=== PATIENT | male | born 1970 | race Hispanic/Latino ===

== ENCOUNTER 2017-11-18 09:40 | Inpatient (IN) | payer SELFPAY ==
[2017-11-18] MEDS ORDERED: ASPIRIN PO ONE (10:03)
[2017-11-18 10:28] LABS: Basophils % (Auto) 0.4 % (0.0-1.8); Eosinophils % (Auto) 0.1 % (0.0-4.3); Hematocrit 34.2 % (35.5-45.6); Hemoglobin 11.5 gm/dl (11.8-15.2); Lymphocytes # (Auto) 0.9 K/mm3 (1.2-5.4); Lymphocytes % (Auto) 20.1 % (13.4-35.0); Mean Corpuscular HGB Conc 34 % (32-34); Mean Corpuscular Hemoglobin 31 pg (28-32); Mean Corpuscular Volume 91 fl (84-94); Monocytes # (Auto) 0.2 K/mm3 (0.0-0.8); Monocytes % (Auto) 5.1 % (0.0-7.3); Platelet Count 236 K/mm3 (140-440); Red Blood Count 3.76 M/mm3 (3.65-5.03); Red Cell Distribution Width 15.9 % (13.2-15.2)
[2017-11-18 10:46] LABS: INR 0.91 (0.87-1.13)
[2017-11-18 10:47] LABS: Partial Thromboplastin Time 26.2 Sec. (24.2-36.6)
[2017-11-18 10:49] LABS: BUN/Creatinine Ratio 10; Blood Urea Nitrogen 10 mg/dL (9-20); Calcium 8.5 mg/dL (8.4-10.2); Hemolysis Index 24
[2017-11-18] MEDS ORDERED: ZOFRAN IV ONE (11:06)
[2017-11-18] MEDS ORDERED: MORPHINE IV ONE (11:06)
--- NOTE | 2017-11-18 11:45 | Emergency Department Report ---
ED Chest Pain HPI - General Chief Complaint: Chest Pain Stated Complaint: CHEST PAIN Time Seen by Provider: 11/18/17 10:40 Source: patient Mode of arrival: Ambulatory Limitations: No Limitations - History of Present Illness Initial Comments: Mr. Spring is a 47-year-old male with history of coronary artery disease status post 2 vessel CABG and PCI. He presents with severe chest pain. Pain is substernal radiating to the right neck. Radiating to the left shoulder. No associated shortness signs of breath. No nausea vomiting. 3 nitroglycerin tabs did not provide any relief. One year ago he underwent 2 vessel CABG at [facility] in [place]. Subsequently 6 months after the CABG, he underwent PCI with increased cardiac stents placed. He is unable to take aspirin or Plavix due to history of GI bleed related to peptic ulcer disease. Today he also had a fall. He has bilateral knee abrasions. He has relocated to [place]. He grew up in the area. His former PCP is located in [place]. He has re-established care with this provider recently. 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 Past surgery history: recent cholecystectomy 1 week ago at [facility] Gastric bypass CABG Aortic valve replacement PCI Medications: Atorvastatin Metoprolol Protonix Aspirin Alprazolam Ambien Severity scale (0 -10): 8 - Related Data Allergies Allergy/AdvReac Type Severity Reaction Status Date / Time lisinopril Allergy Shortness Verified 11/18/17 09:58 of Breath NSAIDS (Non-Steroidal Allergy Nausea Verified 11/18/17 09:58 Anti-Inflamma Heart Score - HEART Score History: Highly suspicious EKG: Non-specific Age: 45-65 Risk factors: > 3 risk factors or hx of atherosclerotic disease Troponin: < normal limit HEART Score: 6 ED Review of Systems ROS: Stated complaint: CHEST PAIN Other details as noted in HPI Comment: All other systems reviewed and negative Constitutional: denies: fever, malaise Respiratory: denies: cough Cardiovascular: chest pain ED Past Medical Hx - Past Medical History Previous Medical History?: Yes Hx Heart Attack/AMI: Yes Hx Diabetes: Yes (no meds) Additional medical history: CAD, Anemia, Chest pain - Surgical History Past Surgical History?: Yes Hx Coronary Stent: Yes Hx Open Heart Surgery: Yes Hx Cholecystectomy: Yes - Social History Smoking Status: Never Smoker Substance Use Type: Alcohol, Prescribed ED Physical Exam - General Limitations: No Limitations General appearance: alert, in no apparent distress - Head Head exam: Present: atraumatic, normocephalic - Eye Eye exam: Present: normal appearance - ENT ENT exam: Present: mucous membranes moist - Neck Neck exam: Present: normal inspection - Respiratory Respiratory exam: Present: normal lung sounds bilaterally. Absent: respiratory distress, wheezes, rales, rhonchi - Cardiovascular Cardiovascular Exam: Present: regular rate, normal rhythm, normal heart sounds. Absent: systolic murmur, diastolic murmur, rubs, gallop - GI/Abdominal GI/Abdominal exam: Present: soft, normal bowel sounds. Absent: distended, tenderness, guarding, rebound - Rectal Rectal exam: Present: deferred - Extremities Exam Extremities exam: Present: normal inspection - Back Exam Back exam: Present: normal inspection - Neurological Exam Neurological exam: Present: alert, oriented X3 - Psychiatric Psychiatric exam: Present: normal affect, normal mood - Skin Skin exam: Present: warm, dry, intact, normal color, abrasion (bilateral knee abrasions, chronic healing ulcer left lower leg ). Absent: rash ED Course Vital Signs 11/18/17 11/18/17 09:58 10:22 Temperature 97.8 F 97.9 F Pulse Rate 56 L 53 L Respiratory 18 13 Rate Blood Pressure 146/82 Blood Pressure 151/84 [Left] O2 Sat by Pulse 99 99 Oximetry ED Medical Decision Making - Lab Data Result diagrams: 11/18/17 10:10 11/18/17 10:11 Laboratory Results - last 24 hr 11/18/17 11/18/17 11/18/17 10:10 10:11 10:11 WBC 4.4 L RBC 3.76 Hgb 11.5 L Hct 34.2 L MCV 91 MCH 31 MCHC 34 RDW 15.9 H Plt Count 236 Lymph % (Auto) 20.1 [place] % (Auto) 5.1 Eos % (Auto) 0.1 Baso % (Auto) 0.4 Lymph # 0.9 L [place] # 0.2 Eos # 0.0 Baso # 0.0 Seg Neutrophils % 74.3 H Seg Neutrophils # 3.3 PT 12.7 INR 0.91 APTT 26.2 Sodium 141 Potassium 4.0 Chloride 104.6 Carbon Dioxide 25 Anion Gap 15 BUN 10 Creatinine 1.0 Estimated GFR > 60 BUN/Creatinine Ratio 10 Glucose 123 H Calcium 8.5 Troponin T < 0.010 - Radiology Data Radiology results: report reviewed, image reviewed - Medical Decision Making Mr. Spring is a 47 yo male with hx of CAD s/p CABG and PCI who presents with ACS. He also reported fall without syncope. No significant due to the fall. Admitted to hospitalist service. I have also consulted cardiology. Critical care attestation.: If time is entered above; I have spent that time in minutes in the direct care of this critically ill patient, excluding procedure time. ED Disposition Clinical Impression: ACS (acute coronary syndrome), Fall from ground level Disposition: DC-09 OP ADMIT IP TO THIS HOSP Is pt being admited?: Yes Does the pt Need Aspirin: No Condition: Stable Time of Disposition: 11:20
--- NOTE | 2017-11-18 12:06 | Consultation ---
History of Present Illness Consult date: 11/18/17 Consult reason: chest pain History of present illness: This is a 47yr old male who presents to the emergency department with chest pain and syncope thus this cardiac consultation. Patient reports he woke up with chest pain, got out of bed and passed out sustaining abrasions to his upper and lower extremities. He denies shortness of breath and palpations. 12 lead ECG is a sinus bradycardia, rate 50, with non-specific Twave abnormalities. Patient reports a history of coronary artery disease and underwent 2 vessel bypass grafting with bioprosthetic aortic valve replacement just over a year ago while living in [place]. He has recently relocated to [place] and has yet to establish cardiac care. Patient also reports a history of gastric bypass in 2008, Hypertension and recent cholecystectomy at an outside hospital. Medications and Allergies Allergies Allergy/AdvReac Type Severity Reaction Status Date / Time lisinopril Allergy Shortness Verified 11/18/17 09:58 of Breath NSAIDS (Non-Steroidal Allergy Nausea Verified 11/18/17 09:58 Anti-Inflamma Physical Examination Vital Signs Temp Pulse Resp BP Pulse Ox 97.8 F 56 L 18 146/82 99 11/18/17 09:58 11/18/17 09:58 11/18/17 09:58 11/18/17 09:58 11/18/17 09:58 General appearance: no acute distress HEENT: Positive: PERRL Cardiac: Positive: Reg Rate and Rhythm Lungs: Positive: Decreased Breath Sounds Neuro: Positive: Grossly Intact Results 11/18/17 10:10 11/18/17 10:11 Coagulation 11/18/17 Range/Units 10:11 PT 12.7 (12.2-14.9) Sec. INR 0.91 (0.87-1.13) APTT 26.2 (24.2-36.6) Sec. CBC 11/18/17 Range/Units 10:10 WBC 4.4 L (4.5-11.0) K/mm3 RBC 3.76 (3.65-5.03) M/mm3 Hgb 11.5 L (11.8-15.2) gm/dl Hct 34.2 L (35.5-45.6) % Plt Count 236 (140-440) K/mm3 Lymph # 0.9 L (1.2-5.4) K/mm3 [place] # 0.2 (0.0-0.8) K/mm3 Eos # 0.0 (0.0-0.4) K/mm3 Baso # 0.0 (0.0-0.1) K/mm3 Comprehensive Metabolic Panel 11/18/17 Range/Units 10:11 Sodium 141 (137-145) mmol/L Potassium 4.0 (3.6-5.0) mmol/L Chloride 104.6 (98-107) mmol/L Carbon Dioxide 25 (22-30) mmol/L BUN 10 (9-20) mg/dL Creatinine 1.0 (0.8-1.5) mg/dL Glucose 123 H (75-100) mg/dL Calcium 8.5 (8.4-10.2) mg/dL Assessment and Plan Syncope Chest pain Hx of CAD with 2v CABG and bioprosthetic AVR 2015 while living in [place] Hypertension Hx of Gastric bypass 2008
[2017-11-18] MEDS ORDERED: NITROSTAT SL PRN (12:37)
[2017-11-18] MEDS ORDERED: TYLENOL PO PRN (12:37)
[2017-11-18] MEDS ORDERED: SODIUM CHLORIDE FLUSH SYRINGE 10 ML IV PRN ×2 (12:37)
[2017-11-18] MEDS ORDERED: BABY ASPIRIN PO STA (12:37)
[2017-11-18 13:24] LABS: Chol/HDL Ratio 2.2 %
[2017-11-18] MEDS ORDERED: TYLENOL ONE (13:55)
[2017-11-18] MEDS: MORPHINE IV PRN ×2 (16:38→20:48)
--- NOTE | 2017-11-18 17:12 | History and Physical Report ---
History of Present Illness Date of admission: 11/18/17 12:37 Chief complaint: Im having chest pain History of present illness: 47 YO Male with HTN, Aortic Stenosis S/P AVR, CAD S/P CABG and Stent Placement, presents to ED for evaluation. Pt states that he has experienced pain in his chest for the past 1 day. Pt states that pain awoke him from sleep. Pt stats that pain is 6/10, Substernal, nonradiating, not worsened with exertion, or relieved with rest. Pt acknowledges loss of consciousness. Pt denies fever, chills, palpitations, NVD, unilateral leg swelling, calf pain, prolonged travel/ immobility, hemoptysis, productive cough, trauma, or recent ill contacts. Pt seen and evaluated in ED and found to have symptoms consistent with ACS as well as CHF in addition to sinus bradycardia. Pt admitted to telemetry. Cardiology team consulted in ED. Past History Past Medical History: CAD, hypertension Past Surgical History: valve replacement, cholecystectomy, CABG, Other (Stent placement, Gastric Bypass) Social history: single. denies: smoking, alcohol abuse, prescription drug abuse Family history: hypertension Medications and Allergies Allergies Allergy/AdvReac Type Severity Reaction Status Date / Time lisinopril Allergy Shortness Verified 11/18/17 09:58 of Breath NSAIDS (Non-Steroidal Allergy Nausea Verified 11/18/17 09:58 Anti-Inflamma Home Medications Medication Instructions Recorded Confirmed Last Taken Type ALPRAZolam [Xanax TAB] 1 mg PO TID PRN 11/18/17 11/18/17 Unknown History AtorvaSTATin [Lipitor] 40 mg PO QHS 11/18/17 11/18/17 Unknown History Cyanocobalamin [Vitamin B-12] 1,000 mcg PO DAILY 11/18/17 11/18/17 Unknown History Losartan/Hydrochlorothiazide 1 each PO DAILY 11/18/17 11/18/17 Unknown History [Losartan-Hctz 50-12.5 mg Tab] Metoprolol [Lopressor TAB] 50 mg PO PRN 11/18/17 11/18/17 Unknown History Pantoprazole [Protonix] 40 mg PO QDAY 11/18/17 11/18/17 Unknown History Zolpidem Tartrate [Ambien CR] 12.5 mg PO QHS 11/18/17 11/18/17 Unknown History Active Meds: Active Medications Acetaminophen (Tylenol) 650 mg PO Q4H PRN PRN Reason: Pain MILD(1-3)/Fever >100.5/RICKETTS Last Admin: 11/18/17 14:10 Dose: 650 mg Alprazolam (Xanax) 1 mg PO TID PRN PRN Reason: Anxiety Morphine Sulfate (Morphine) 2 mg IV Q4H PRN PRN Reason: Pain, Moderate (4-6) Last Admin: 11/18/17 16:38 Dose: 2 mg Nitroglycerin (Nitrostat) 0.4 mg SL Q5M PRN PRN Reason: Chest Pain Last Admin: 11/18/17 13:06 Dose: 0.4 mg Ondansetron HCl (Zofran) 4 mg IV Q8H PRN PRN Reason: Nausea And Vomiting Sodium Chloride (Sodium Chloride Flush Syringe 10 Ml) 10 ml IV BID DUANE Sodium Chloride (Sodium Chloride Flush Syringe 10 Ml) 10 ml IV PRN PRN PRN Reason: LINE FLUSH Sodium Chloride (Sodium Chloride Flush Syringe 10 Ml) 10 ml IV PRN PRN PRN Reason: LINE FLUSH Review of Systems Constitutional: no weight loss, no weight gain, no fever, no chills Ears, nose, mouth and throat: no ear pain, no ear discharge, no tinnitis, no decreased hearing, no nose pain, no nasal congestion, no sinus pressure Cardiovascular: chest pain, no orthopnea, no palpitations Respiratory: no cough, no cough with sputum, no excessive sputum, no hemoptysis , no shortness of breath Gastrointestinal: no nausea, no vomiting, no diarrhea, no constipation Genitourinary Male: no hematuria, no flank pain, no discharge, no urinary frequency, no urinary hesitancy, no nocturia Rectal: no pain, no incontinence, no bleeding Musculoskeletal: no neck stiffness, no neck pain, no shooting arm pain, no arm numbness/tingling, no low back pain, no shooting leg pain Integumentary: no rash, no pruritis, no redness, no sores, no wounds Neurological: no paralysis, no weakness, no parathesias, no numbness, no tingling, no seizures Psychiatric: no memory loss, no change in sleep habits, no sleep disturbances, no insomnia, no hypersomnia, no change in appetite, no change in libido, no suicidal ideation Endocrine: no cold intolerance, no heat intolerance, no polyphagia, no excessive thirst, no polydipsia, no polyuria, no nocturia, no excessive sweating Hematologic/Lymphatic: no easy bruising, no easy bleeding, no lymphadenopathy, no lymphedema Allergic/Immunologic: no urticaria, no allergic rhinitis, no wheezing, no persistent infections, no anaphylaxis, no angioedema Exam - Constitutional Vitals: Temp Pulse Resp BP Pulse Ox 97.9 F 59 L 20 130/75 98 11/18/17 16:33 11/18/17 16:33 11/18/17 16:38 11/18/17 16:33 11/18/17 16:33 General appearance: Present: mild distress, cachectic - EENT Eyes: Present: PERRL ENT: hearing intact, clear oral mucosa - Neck Neck: Present: supple, normal ROM - Respiratory Respiratory effort: normal Respiratory: bilateral: CTA - Cardiovascular Heart Sounds: Present: S1 & S2. Absent: rub, click - Extremities Extremities: pulses symmetrical, No edema Extremity abnormal: edema Peripheral Pulses: within normal limits - Abdominal General gastrointestinal: Present: soft, non-tender, non-distended, normal bowel sounds Male genitourinary: Present: normal - Integumentary Integumentary: Present: clear, warm, dry - Musculoskeletal Musculoskeletal: gait normal, strength equal bilaterally - Psychiatric Psychiatric: appropriate mood/affect, intact judgment & insight - Neurologic Neurologic: CNII-XII intact, moves all extremities Results - Labs CBC & Chem 7: 11/18/17 10:10 11/18/17 10:11 Labs: Abnormal lab results 11/18/17 11/18/17 11/18/17 Range/Units 10:10 10:11 10:11 WBC 4.4 L (4.5-11.0) K/mm3 Hgb 11.5 L (11.8-15.2) gm/dl Hct 34.2 L (35.5-45.6) % RDW 15.9 H (13.2-15.2) % Lymph # 0.9 L (1.2-5.4) K/mm3 Seg Neutrophils % 74.3 H (40.0-70.0) % D-Dimer (0-234) ng/mlDDU Glucose 123 H (75-100) mg/dL NT-Pro-B Natriuret Pep 5237 H (0-450) pg/mL HDL Cholesterol (40-59) mg/dL 11/18/17 11/18/17 Range/Units 10:11 10:36 WBC (4.5-11.0) K/mm3 Hgb (11.8-15.2) gm/dl Hct (35.5-45.6) % RDW (13.2-15.2) % Lymph # (1.2-5.4) K/mm3 Seg Neutrophils % (40.0-70.0) % D-Dimer 840.79 H (0-234) ng/mlDDU Glucose (75-100) mg/dL NT-Pro-B Natriuret Pep (0-450) pg/mL HDL Cholesterol 68 H (40-59) mg/dL Assessment and Plan - Patient Problems (1) CHF (congestive heart failure) Current Visit: Yes Status: Acute Qualifiers: Heart failure type: systolic Heart failure chronicity: acute Qualified Code(s): I50.21 - Acute systolic (congestive) heart failure Plan to address problem: Admit to telemetry, cardiology consulted in ED, Strict I/O, monitor uop q shift , daily weight, Echo, supplemental oxygen, BNP, D dimer, (2) CAD (coronary artery disease) Current Visit: Yes Status: Acute Qualifiers: Associated angina: with stable angina Plan to address problem: Cardiology consulted, admit to telemetry, risk factor reduction, (3) ACS (acute coronary syndrome) Current Visit: Yes Status: Acute Plan to address problem: serial cardiac enzymes, ekg, telemetry, cardiology consulted. (4) DVT prophylaxis Current Visit: Yes Status: Acute Plan to address problem: SCD to ble while in bed.
[2017-11-18] MEDS ORDERED: LOPRESSOR PO SCH (18:00)
[2017-11-18] MEDS: XANAX PO PRN ×2 (18:37→23:44)
[2017-11-18 20:07] LABS: Free T4 (Free Thyroxine) 1.05 ng/dL (0.76-1.46)
[2017-11-18] MEDS: SODIUM CHLORIDE FLUSH SYRINGE 10 ML IV SCH ×2 (20:50→23:01)
[2017-11-18] MEDS ORDERED: ZOLPIDEM TARTRATE 12.5 MG PO SCH (22:00)
[2017-11-18] MEDS ORDERED: AMBIEN PO ONE ×2 (23:35→23:45)
[2017-11-19] MEDS: MORPHINE IV PRN ×5 (03:16→21:00)
[2017-11-19] MEDS: XANAX PO PRN ×3 (06:43→22:10)
--- NOTE | 2017-11-19 09:55 | Progress Note ---
Assessment and Plan Assessment and plan: Chest pain due to acute pulmonary embolism. Acute pulmonary embolism on left. Seen on CT angiogra of chest. I informed and discussed with him. he states he has history of PE and DVT and was taken off Xarelto few months ago because of history of GI bleed , anemia. he also had subdural hematoma last year. Start heparin drip. Consult Hematology director decision support Coronary artery disease s/p CABG Cardiology following. I discussed case with cardiology Hypertension Aortic stenosis s/p aortic valve replacement with bioprosthesis History of pulmonry embolism History of DVT History of subdural hematoma History of gastric bypass and massive weight loss. Full code status. History Interval history: Chest pain Hospitalist Physical - Physical exam Narrative exam: Gen : Not in acute distress, HEENT:Normocephalic, atraumatic Neck: supple, No JVD Lungs: Clear to auscultation, bilaterally, no rhonchi Heart :S1 and S2 reg, no murmurs, rubs or gallop Abd:soft, non tender, non distended, normal bowel sounds Ext: No edema, no clubbing, no cyanosis, Neuro: Awake,alert,oriented x 3, no focal signs Psych:normal mood - Constitutional Vitals: Temp Pulse Resp BP Pulse Ox 97.9 F 48 L 18 138/76 99 11/19/17 07:39 11/19/17 07:39 11/19/17 07:39 11/19/17 07:39 11/19/17 07:39 Results - Labs CBC & Chem 7: 11/19/17 13:22 11/18/17 10:11 Labs: Laboratory Last Values WBC 4.4 K/mm3 (4.5-11.0) L 11/18/17 10:10 RBC 3.76 M/mm3 (3.65-5.03) 11/18/17 10:10 Hgb 11.5 gm/dl (11.8-15.2) L 11/18/17 10:10 Hct 34.2 % (35.5-45.6) L 11/18/17 10:10 MCV 91 fl (84-94) 11/18/17 10:10 MCH 31 pg (28-32) 11/18/17 10:10 MCHC 34 % (32-34) 11/18/17 10:10 RDW 15.9 % (13.2-15.2) H 11/18/17 10:10 Plt Count 236 K/mm3 (140-440) 11/18/17 10:10 Lymph % (Auto) 20.1 % (13.4-35.0) 11/18/17 10:10 [place] % (Auto) 5.1 % (0.0-7.3) 11/18/17 10:10 Eos % (Auto) 0.1 % (0.0-4.3) 11/18/17 10:10 Baso % (Auto) 0.4 % (0.0-1.8) 11/18/17 10:10 Lymph # 0.9 K/mm3 (1.2-5.4) L 11/18/17 10:10 [place] # 0.2 K/mm3 (0.0-0.8) 11/18/17 10:10 Eos # 0.0 K/mm3 (0.0-0.4) 11/18/17 10:10 Baso # 0.0 K/mm3 (0.0-0.1) 11/18/17 10:10 Seg Neutrophils % 74.3 % (40.0-70.0) H 11/18/17 10:10 Seg Neutrophils # 3.3 K/mm3 (1.8-7.7) 11/18/17 10:10 PT 12.7 Sec. (12.2-14.9) 11/18/17 10:11 INR 0.91 (0.87-1.13) 11/18/17 10:11 APTT 26.2 Sec. (24.2-36.6) 11/18/17 10:11 D-Dimer 840.79 ng/mlDDU (0-234) H 11/18/17 10:36 Sodium 141 mmol/L (137-145) 11/18/17 10:11 Potassium 4.0 mmol/L (3.6-5.0) 11/18/17 10:11 Chloride 104.6 mmol/L (98-107) 11/18/17 10:11 Carbon Dioxide 25 mmol/L (22-30) 11/18/17 10:11 Anion Gap 15 mmol/L 11/18/17 10:11 BUN 10 mg/dL (9-20) 11/18/17 10:11 Creatinine 1.0 mg/dL (0.8-1.5) 11/18/17 10:11 Estimated GFR > 60 ml/min 11/18/17 10:11 BUN/Creatinine Ratio 10 % 11/18/17 10:11 Glucose 123 mg/dL (75-100) H 11/18/17 10:11 Calcium 8.5 mg/dL (8.4-10.2) 11/18/17 10:11 Troponin T < 0.010 ng/mL (0.00-0.029) 11/18/17 19:05 NT-Pro-B Natriuret Pep 5237 pg/mL (0-450) H 11/18/17 10:11 Triglycerides 119 mg/dL (2-149) 11/18/17 10:11 Cholesterol 150 mg/dL (50-199) 11/18/17 10:11 LDL Cholesterol Direct 73 mg/dL (50-130) 11/18/17 10:11 HDL Cholesterol 68 mg/dL (40-59) H 11/18/17 10:11 Cholesterol/HDL Ratio 2.20 % 11/18/17 10:11 TSH 1.120 mlU/mL (0.270-4.200) 11/18/17 19:05 Free T4 1.05 ng/dL (0.76-1.46) 11/18/17 19:05
[2017-11-19] MEDS: COZAAR PO SCH ×2 (09:58→10:09)
[2017-11-19] MEDS ORDERED: NON-FORMULARY (Losartan/Hydrochlorothiazide [Losartan-Hctz 50-12.5 Mg Tab] 1 EACH) PO SCH (10:00)
[2017-11-19] MEDS ORDERED: PROTONIX PO SCH (10:00)
[2017-11-19] MEDS: VITAMIN B-12 PO SCH (10:03)
[2017-11-19] MEDS: HCTZ PO SCH (10:04)
[2017-11-19] MEDS: SODIUM CHLORIDE FLUSH SYRINGE 10 ML IV SCH ×2 (10:10→22:11)
--- NOTE | 2017-11-19 11:16 | Cat Scan Report ---
CTA CHEST: HISTORY: Syncope. COMPARISON: none. TECHNIQUE: Helical CT in 1.25mm intervals following IV contrast. Pulmonary embolus protocol. Sagittal and coronal reformatted images. Rotational MIP images. FINDINGS: Contrast bolus is satisfactory. A solitary, small, nonocclusive filling defect is identified in the second and third order pulmonary arterial branches leading to the left lower lobe. This is best demonstrated on image 127, series 4. No other emboli are identified. Thyroid gland: Normal. Tracheobronchial tree: Normal. Esophagus: Normal. Heart: The heart is normal size. Moderate coronary artery calcifications are identified. Previous aortic valve replacement changes are noted. Pericardium: Normal. Mediastinum: Normal. Lung Vazquez: normal. Pleural Spaces: Normal. Musculoskeletal: Mild thoracic spondylosis. No fracture or suspicious bony lesion. IMPRESSION: Positive for pulmonary embolus as described. These findings were relayed to the patient's RN, Whitney, on 4A at 1104 hrs.
--- NOTE | 2017-11-19 12:30 | Event Note ---
Date: 11/19/17 Called by Nurse that patient has Pulmonry Embolism on CT Angio of Chest. Start Lovenox 1mg/kg subcut bid.
[2017-11-19] MEDS ORDERED: LOVENOX SUB-Q SCH ×2 (13:00)
--- NOTE | 2017-11-19 13:38 | Progress Note ---
Assessment and Plan Syncope Acute PE Hx of CAD with 2v CABG and bioprosthetic AVR 2016 while living in [place] Hypertension Hx of Gastric bypass 2009 Hx of Subdural Hematoma Recommendations: Obtain prior cardiac records for review. Echocardiogram for left ventricular function assessment and bioprosthetic aortic valve assessment. Subjective Date of service: 11/19/17 Interval history: No cardiac events overnight. Objective Vital Signs Temp Pulse Resp BP BP Pulse Ox 11/19/17 12:47 98.0 F 55 L 18 152/82 99 11/19/17 10:09 48 L 11/19/17 09:58 48 L 11/19/17 08:00 18 11/19/17 07:39 97.9 F 48 L 18 138/76 99 11/19/17 05:00 48 L 11/19/17 04:55 97.7 F 20 150/71 11/18/17 22:45 98.3 F 52 L 18 145/85 99 11/18/17 21:22 64 11/18/17 21:05 18 11/18/17 19:27 63 116/68 99 11/18/17 18:37 59 L 130/75 11/18/17 17:08 20 11/18/17 16:38 20 11/18/17 16:33 97.9 F 59 L 18 130/75 98 11/18/17 16:03 97.9 F 59 L 18 130/75 98 11/18/17 15:54 73 11 L 114/78 99 11/18/17 14:50 72 19 114/78 99 11/18/17 14:40 75 14 114/78 100 11/18/17 14:30 75 20 114/78 100 11/18/17 14:20 70 23 114/78 100 11/18/17 14:10 71 19 114/78 100 11/18/17 14:00 73 11 L 114/78 99 11/18/17 13:50 73 12 158/86 100 11/18/17 13:40 71 15 158/86 100 - Physical Examination General: No Apparent Distress HEENT: Positive: PERRL Cardiac: Positive: Bradycardia Neuro: Positive: Grossly Intact
[2017-11-19 13:51] LABS: Hematocrit 35.6 % (35.5-45.6); Hemoglobin 11.5 gm/dl (11.8-15.2)
[2017-11-19 14:00] LABS: INR 0.93 (0.87-1.13)
[2017-11-19 14:01] LABS: Partial Thromboplastin Time 25.1 Sec. (24.2-36.6)
[2017-11-19] MEDS: HEPARIN/ 0.45% NACL-25,000 UNIT/500 ML 25,000 UNIT/500 ML BAG IV SCH (14:24)
[2017-11-19] MEDS ORDERED: PROTONIX IV SCH (15:00)
[2017-11-19] MEDS ORDERED: HEPARIN 10,000 UNITS/10 ML IV ONE (22:00)
[2017-11-19] MEDS: PEPCID IV SCH (22:10)
[2017-11-19] MEDS: AMBIEN PO PRN (23:18)
[2017-11-20] MEDS: MORPHINE IV PRN ×3 (03:27→12:45)
[2017-11-20 05:28] LABS: Hematocrit 30.9 % (35.5-45.6); Hemoglobin 10.4 gm/dl (11.8-15.2); Mean Corpuscular HGB Conc 34 % (32-34); Mean Corpuscular Hemoglobin 31 pg (28-32); Mean Corpuscular Volume 91 fl (84-94); Platelet Count 177 K/mm3 (140-440)
[2017-11-20 05:29] LABS: Mean Platelet Volume 8.6 fl (6-12)
[2017-11-20 05:42] LABS: BUN/Creatinine Ratio 23; Blood Urea Nitrogen 18 mg/dL (9-20); Calcium 7.6 mg/dL (8.4-10.2); Hemolysis Index 3
[2017-11-20] MEDS: XANAX PO PRN ×2 (06:20→14:23)
[2017-11-20] MEDS: PEPCID IV SCH ×2 (09:59→22:19)
[2017-11-20] MEDS: VITAMIN B-12 PO SCH (10:00)
[2017-11-20] MEDS: HCTZ PO SCH (10:00)
[2017-11-20] MEDS: SODIUM CHLORIDE FLUSH SYRINGE 10 ML IV SCH ×2 (10:00→22:19)
[2017-11-20] MEDS: COZAAR PO SCH (10:00)
--- NOTE | 2017-11-20 10:40 | Progress Note ---
Assessment and Plan - Patient Problems (1) History of aortic valve replacement with bioprosthetic valve Current Visit: Yes Status: Acute Plan to address problem: Echocardiogram shows a well functioning prosthetic valve with a minimal transaortic gradient of 9 mmHg. (2) CAD (coronary artery disease) Current Visit: Yes Status: Acute Qualifiers: Associated angina: with stable angina Plan to address problem: Coronary disease is stable and asymptomatic. Continue medical therapy. Subjective Date of service: 11/20/17 Interval history: Patient is undergoing anticoagulation therapy for acute pulmonary embolism. Risks and benefits of anticoagulation therapy is being evaluated, given his history of GI bleed and subdural hematoma. Objective Vital Signs Temp Pulse Resp BP Pulse Ox 11/20/17 10:00 77 130/80 11/20/17 09:14 16 11/20/17 08:23 16 11/20/17 07:20 98.3 F 54 L 18 131/69 97 11/20/17 06:05 97.9 F 54 L 20 147/77 98 11/19/17 23:07 97.8 F 56 L 20 133/92 98 11/19/17 19:50 98.3 F 55 L 20 137/84 98 11/19/17 15:52 98.0 F 50 L 18 149/92 98 11/19/17 12:47 98.0 F 55 L 18 152/82 99 11/19/17 11:00 99 - Physical Examination General: No Apparent Distress HEENT: Positive: PERRL Neck: Positive: neck supple Cardiac: Positive: Reg Rate and Rhythm Lungs: Positive: Decreased Breath Sounds Neuro: Positive: Grossly Intact Abdomen: Positive: Soft Skin: Positive: Clear Extremities: Absent: edema - Labs and Meds Coagulation 11/19/17 Range/Units 13:22 PT 12.9 (12.2-14.9) Sec. INR 0.93 (0.87-1.13) APTT 25.1 (24.2-36.6) Sec. CBC 11/19/17 11/20/17 Range/Units 13:22 04:51 WBC 4.8 (4.5-11.0) K/mm3 RBC 3.40 L (3.65-5.03) M/mm3 Hgb 11.5 L 10.4 L (11.8-15.2) gm/dl Hct 35.6 30.9 L (35.5-45.6) % Plt Count 232 177 (140-440) K/mm3 Comprehensive Metabolic Panel 11/20/17 Range/Units 04:51 Sodium 141 (137-145) mmol/L Potassium 3.8 (3.6-5.0) mmol/L Chloride 107.8 H (98-107) mmol/L Carbon Dioxide 25 (22-30) mmol/L BUN 18 (9-20) mg/dL Creatinine 0.8 (0.8-1.5) mg/dL Glucose 85 (75-100) mg/dL Calcium 7.6 L (8.4-10.2) mg/dL
[2017-11-20] MEDS: HEPARIN/ 0.45% NACL-25,000 UNIT/500 ML 25,000 UNIT/500 ML BAG IV SCH ×2 (11:35→15:13)
--- NOTE | 2017-11-20 13:53 | Progress Note ---
Assessment and Plan Assessment and plan: Chest pain due to acute pulmonary embolism. Acute pulmonary embolism on left. Seen on CT angiogram of chest. I informed and discussed with him. He states he has history of PE and DVT and was taken off Xarelto few months ago because of history of GI bleed , anemia. he also had subdural hematoma last year. Continue heparin drip. Consulted Hematology intermission coordinator, to determine longterm anticoagulation. Coronary artery disease s/p CABG Cardiology following. I discussed case with cardiology Hypertension Aortic stenosis s/p aortic valve replacement with bioprosthesis History of pulmonry embolism History of DVT History of subdural hematoma History of gastric bypass and massive weight loss. Full code status. History Interval history: Chest pain Hospitalist Physical - Physical exam Narrative exam: Gen : Not in acute distress, HEENT:Normocephalic, atraumatic Neck: supple, No JVD Lungs: Clear to auscultation, bilaterally, no rhonchi Heart :S1 and S2 reg, no murmurs, rubs or gallop Abd:soft, non tender, non distended, normal bowel sounds Ext: No edema, no clubbing, no cyanosis, Neuro: Awake,alert,oriented x 3, no focal signs Psych:normal mood - Constitutional Vitals: Temp Pulse Resp BP Pulse Ox 98.1 F 54 L 20 135/82 98 11/20/17 11:21 11/20/17 12:04 11/20/17 11:21 11/20/17 11:21 11/20/17 11:21 Results - Labs CBC & Chem 7: 11/20/17 04:51 11/20/17 04:51 Labs: Laboratory Last Values WBC 4.8 K/mm3 (4.5-11.0) 11/20/17 04:51 RBC 3.40 M/mm3 (3.65-5.03) L 11/20/17 04:51 Hgb 10.4 gm/dl (11.8-15.2) L 11/20/17 04:51 Hct 30.9 % (35.5-45.6) L 11/20/17 04:51 MCV 91 fl (84-94) 11/20/17 04:51 MCH 31 pg (28-32) 11/20/17 04:51 MCHC 34 % (32-34) 11/20/17 04:51 RDW 16.0 % (13.2-15.2) H 11/20/17 04:51 Plt Count 177 K/mm3 (140-440) 11/20/17 04:51 Lymph % (Auto) 20.1 % (13.4-35.0) 11/18/17 10:10 [place] % (Auto) 5.1 % (0.0-7.3) 11/18/17 10:10 Eos % (Auto) 0.1 % (0.0-4.3) 11/18/17 10:10 Baso % (Auto) 0.4 % (0.0-1.8) 11/18/17 10:10 Lymph # 0.9 K/mm3 (1.2-5.4) L 11/18/17 10:10 Hardy # 0.2 K/mm3 (0.0-0.8) 11/18/17 10:10 Eos # 0.0 K/mm3 (0.0-0.4) 11/18/17 10:10 Baso # 0.0 K/mm3 (0.0-0.1) 11/18/17 10:10 Seg Neutrophils % 74.3 % (40.0-70.0) H 11/18/17 10:10 Seg Neutrophils # 3.3 K/mm3 (1.8-7.7) 11/18/17 10:10 PT 12.9 Sec. (12.2-14.9) 11/19/17 13:22 INR 0.93 (0.87-1.13) 11/19/17 13:22 APTT 25.1 Sec. (24.2-36.6) 11/19/17 13:22 D-Dimer 840.79 ng/mlDDU (0-234) H 11/18/17 10:36 Heparin Anti-Xa Level 0.29 U.I./ml (0.3-0.7) L 11/20/17 04:51 Sodium 141 mmol/L (137-145) 11/20/17 04:51 Potassium 3.8 mmol/L (3.6-5.0) 11/20/17 04:51 Chloride 107.8 mmol/L (98-107) H 11/20/17 04:51 Carbon Dioxide 25 mmol/L (22-30) 11/20/17 04:51 Anion Gap 12 mmol/L 11/20/17 04:51 BUN 18 mg/dL (9-20) 11/20/17 04:51 Creatinine 0.8 mg/dL (0.8-1.5) 11/20/17 04:51 Estimated GFR > 60 ml/min 11/20/17 04:51 BUN/Creatinine Ratio 23 % 11/20/17 04:51 Glucose 85 mg/dL (75-100) 11/20/17 04:51 Calcium 7.6 mg/dL (8.4-10.2) L 11/20/17 04:51 Troponin T < 0.010 ng/mL (0.00-0.029) 11/18/17 19:05 NT-Pro-B Natriuret Pep 5237 pg/mL (0-450) H 11/18/17 10:11 Triglycerides 119 mg/dL (2-149) 11/18/17 10:11 Cholesterol 150 mg/dL (50-199) 11/18/17 10:11 LDL Cholesterol Direct 73 mg/dL (50-130) 11/18/17 10:11 HDL Cholesterol 68 mg/dL (40-59) H 11/18/17 10:11 Cholesterol/HDL Ratio 2.20 % 11/18/17 10:11 TSH 1.120 mlU/mL (0.270-4.200) 11/18/17 19:05 Free T4 1.05 ng/dL (0.76-1.46) 11/18/17 19:05
[2017-11-20] MEDS ORDERED: HEPARIN 10,000 UNITS/10 ML IV ONE (15:16)
[2017-11-20] MEDS: PERCOCET 5/325 PO PRN ×2 (16:13→20:07)
[2017-11-20] MEDS: ZOFRAN IV PRN (17:00)
[2017-11-20] MEDS: AMBIEN PO PRN (22:19)
[2017-11-21] MEDS: PERCOCET 5/325 PO PRN ×6 (00:17→21:59)
[2017-11-21] MEDS: HEPARIN/ 0.45% NACL-25,000 UNIT/500 ML 25,000 UNIT/500 ML BAG IV SCH (04:10)
[2017-11-21 05:33] LABS: Hematocrit 31.1 % (35.5-45.6); Hemoglobin 10.3 gm/dl (11.8-15.2)
[2017-11-21] MEDS: XANAX PO PRN ×2 (05:56→14:27)
[2017-11-21] MEDS: COZAAR PO SCH (09:30)
[2017-11-21] MEDS: HCTZ PO SCH (09:31)
[2017-11-21] MEDS: PEPCID IV SCH (09:31)
[2017-11-21] MEDS: VITAMIN B-12 PO SCH (09:32)
[2017-11-21] MEDS: SODIUM CHLORIDE FLUSH SYRINGE 10 ML IV SCH ×2 (09:32→22:00)
--- NOTE | 2017-11-21 10:14 | Progress Note ---
Assessment and Plan Assessment and plan: Chest pain due to acute pulmonary embolism. Acute pulmonary embolism on left. Seen on CT angiogram of chest. I informed and discussed with him. He states he has history of PE and DVT and was taken off Xarelto few months ago because of history of GI bleed , anemia. he also had subdural hematoma last year. Continue heparin drip. Consulted Hematology security operations analyst, to determine fci anticoagulation options. Coronary artery disease s/p CABG Cardiology following. I discussed case with cardiology Hypertension Aortic stenosis s/p aortic valve replacement with bioprosthesis History of pulmonary embolism History of DVT History of peptic ulcer disease History of subdural hematoma History of gastric bypass and massive weight loss. Full code status. History Interval history: Chest pain, Mild shortness of breath Hospitalist Physical - Physical exam Narrative exam: Gen : Not in acute distress, HEENT:Normocephalic, atraumatic Neck: supple, No JVD Lungs: Clear to auscultation, bilaterally, no rhonchi Heart :S1 and S2 reg, no murmurs, rubs or gallop Abd:soft, non tender, non distended, normal bowel sounds Ext: No edema, no clubbing, no cyanosis, Neuro: Awake,alert,oriented x 3, no focal signs Psych:normal mood - Constitutional Vitals: Temp Pulse Resp BP Pulse Ox 98.0 F 58 L 18 130/79 99 11/21/17 07:32 11/21/17 09:30 11/21/17 08:23 11/21/17 09:30 11/21/17 07:32 Results - Labs CBC & Chem 7: 11/22/17 10:29 11/20/17 04:51 Labs: Laboratory Last Values WBC 4.8 K/mm3 (4.5-11.0) 11/20/17 04:51 RBC 3.40 M/mm3 (3.65-5.03) L 11/20/17 04:51 Hgb 10.3 gm/dl (11.8-15.2) L 11/21/17 04:54 Hct 31.1 % (35.5-45.6) L 11/21/17 04:54 MCV 91 fl (84-94) 11/20/17 04:51 MCH 31 pg (28-32) 11/20/17 04:51 MCHC 34 % (32-34) 11/20/17 04:51 RDW 16.0 % (13.2-15.2) H 11/20/17 04:51 Plt Count 186 K/mm3 (140-440) 11/21/17 04:54 Lymph % (Auto) 20.1 % (13.4-35.0) 11/18/17 10:10 [place] % (Auto) 5.1 % (0.0-7.3) 11/18/17 10:10 Eos % (Auto) 0.1 % (0.0-4.3) 11/18/17 10:10 Baso % (Auto) 0.4 % (0.0-1.8) 11/18/17 10:10 Lymph # 0.9 K/mm3 (1.2-5.4) L 11/18/17 10:10 [place] # 0.2 K/mm3 (0.0-0.8) 11/18/17 10:10 Eos # 0.0 K/mm3 (0.0-0.4) 11/18/17 10:10 Baso # 0.0 K/mm3 (0.0-0.1) 11/18/17 10:10 Seg Neutrophils % 74.3 % (40.0-70.0) H 11/18/17 10:10 Seg Neutrophils # 3.3 K/mm3 (1.8-7.7) 11/18/17 10:10 PT 12.9 Sec. (12.2-14.9) 11/19/17 13:22 INR 0.93 (0.87-1.13) 11/19/17 13:22 APTT 25.1 Sec. (24.2-36.6) 11/19/17 13:22 D-Dimer 840.79 ng/mlDDU (0-234) H 11/18/17 10:36 Heparin Anti-Xa Level 0.57 U.I./ml (0.3-0.7) 11/20/17 19:49 Sodium 141 mmol/L (137-145) 11/20/17 04:51 Potassium 3.8 mmol/L (3.6-5.0) 11/20/17 04:51 Chloride 107.8 mmol/L (98-107) H 11/20/17 04:51 Carbon Dioxide 25 mmol/L (22-30) 11/20/17 04:51 Anion Gap 12 mmol/L 11/20/17 04:51 BUN 18 mg/dL (9-20) 11/20/17 04:51 Creatinine 0.8 mg/dL (0.8-1.5) 11/20/17 04:51 Estimated GFR > 60 ml/min 11/20/17 04:51 BUN/Creatinine Ratio 23 % 11/20/17 04:51 Glucose 85 mg/dL (75-100) 11/20/17 04:51 Calcium 7.6 mg/dL (8.4-10.2) L 11/20/17 04:51 Troponin T < 0.010 ng/mL (0.00-0.029) 11/18/17 19:05 NT-Pro-B Natriuret Pep 5237 pg/mL (0-450) H 11/18/17 10:11 Triglycerides 119 mg/dL (2-149) 11/18/17 10:11 Cholesterol 150 mg/dL (50-199) 11/18/17 10:11 LDL Cholesterol Direct 73 mg/dL (50-130) 11/18/17 10:11 HDL Cholesterol 68 mg/dL (40-59) H 11/18/17 10:11 Cholesterol/HDL Ratio 2.20 % 11/18/17 10:11 TSH 1.120 mlU/mL (0.270-4.200) 11/18/17 19:05 Free T4 1.05 ng/dL (0.76-1.46) 11/18/17 19:05
[2017-11-21] MEDS: ZOFRAN IV PRN (11:01)
[2017-11-21] MEDS: MORPHINE IV PRN (11:01)
--- NOTE | 2017-11-21 11:55 | Progress Note ---
Assessment and Plan - Patient Problems (1) History of aortic valve replacement with bioprosthetic valve Current Visit: Yes Status: Acute Plan to address problem: Echocardiogram shows normal EF 55-60% and a well functioning prosthetic valve with a minimal transaortic gradient of 9 mmHg. (2) CAD (coronary artery disease) Current Visit: Yes Status: Acute Qualifiers: Associated angina: with stable angina Plan to address problem: Coronary disease is stable and asymptomatic. Continue medical therapy. Subjective Date of service: 11/21/17 Interval history: Patient is comfortable, no cardiac complaints, looks and feels better. Objective Vital Signs Temp Pulse Resp Resp BP Pulse Ox 11/21/17 09:30 58 L 130/79 11/21/17 08:23 18 11/21/17 08:16 18 11/21/17 07:32 98.0 F 54 L 18 130/75 99 11/21/17 04:57 98.3 F 51 L 16 140/79 98 11/20/17 22:39 97.6 F 56 L 18 143/80 97 11/20/17 20:00 71 11/20/17 19:26 97.8 F 77 18 121/83 98 11/20/17 16:25 97.9 F 65 18 141/86 99 11/20/17 12:04 54 L - Physical Examination General: No Apparent Distress HEENT: Positive: PERRL Neck: Positive: neck supple Cardiac: Positive: Reg Rate and Rhythm Lungs: Positive: Decreased Breath Sounds Neuro: Positive: Grossly Intact Abdomen: Positive: Soft Skin: Positive: Clear Extremities: Absent: edema - Labs and Meds CBC 11/21/17 Range/Units 04:54 Hgb 10.3 L (11.8-15.2) gm/dl Hct 31.1 L (35.5-45.6) % Plt Count 186 (140-440) K/mm3
[2017-11-21] MEDS: PEPCID PO SCH (21:59)
[2017-11-22] MEDS: AMBIEN PO PRN ×2 (00:12→22:25)
[2017-11-22] MEDS: PERCOCET 5/325 PO PRN ×4 (02:36→17:54)
[2017-11-22] MEDS: XANAX PO PRN ×3 (05:46→22:25)
[2017-11-22] MEDS: ZOFRAN IV PRN ×2 (08:40→15:48)
[2017-11-22] MEDS: HEPARIN/ 0.45% NACL-25,000 UNIT/500 ML 25,000 UNIT/500 ML BAG IV SCH (08:43)
--- NOTE | 2017-11-22 10:22 | Progress Note ---
Assessment and Plan Assessment and plan: Chest pain due to acute pulmonary embolism. Acute pulmonary embolism on left. Seen on CT angiogram of chest. I informed and discussed with him. He states he has history of PE and DVT and was taken off Xarelto few months ago because of history of GI bleed , anemia. he also had subdural hematoma last year. Continue heparin drip. Coronary artery disease s/p CABG Cardiology following. I discussed case with cardiology Hematemesis. consult GI. Likely EGD in am Hypertension Aortic stenosis s/p aortic valve replacement with bioprosthesis History of pulmonary embolism History of DVT History of peptic ulcer disease History of subdural hematoma History of gastric bypass and massive weight loss. Full code status. History Interval history: Chest pain, Mild shortness of breath, vomited blood 5 days ago at home Hospitalist Physical - Physical exam Narrative exam: Gen : Not in acute distress, HEENT:Normocephalic, atraumatic Neck: supple, No JVD Lungs: Clear to auscultation, bilaterally, no rhonchi Heart :S1 and S2 reg, no murmurs, rubs or gallop Abd:soft, non tender, non distended, normal bowel sounds Ext: No edema, no clubbing, no cyanosis, Neuro: Awake,alert,oriented x 3, no focal signs Psych:normal mood - Constitutional Vitals: Temp Pulse Resp BP Pulse Ox 98.0 F 61 20 149/83 98 11/22/17 07:26 11/22/17 07:26 11/22/17 07:26 11/22/17 07:26 11/22/17 07:26 Results - Labs CBC & Chem 7: 11/22/17 10:29 11/20/17 04:51 Labs: Laboratory Last Values WBC 4.8 K/mm3 (4.5-11.0) 11/20/17 04:51 RBC 3.40 M/mm3 (3.65-5.03) L 11/20/17 04:51 Hgb 10.3 gm/dl (11.8-15.2) L 11/21/17 04:54 Hct 31.1 % (35.5-45.6) L 11/21/17 04:54 MCV 91 fl (84-94) 11/20/17 04:51 MCH 31 pg (28-32) 11/20/17 04:51 MCHC 34 % (32-34) 11/20/17 04:51 RDW 16.0 % (13.2-15.2) H 11/20/17 04:51 Plt Count 186 K/mm3 (140-440) 11/21/17 04:54 Lymph % (Auto) 20.1 % (13.4-35.0) 11/18/17 10:10 [place] % (Auto) 5.1 % (0.0-7.3) 11/18/17 10:10 Eos % (Auto) 0.1 % (0.0-4.3) 11/18/17 10:10 Baso % (Auto) 0.4 % (0.0-1.8) 11/18/17 10:10 Lymph # 0.9 K/mm3 (1.2-5.4) L 11/18/17 10:10 [place] # 0.2 K/mm3 (0.0-0.8) 11/18/17 10:10 Eos # 0.0 K/mm3 (0.0-0.4) 11/18/17 10:10 Baso # 0.0 K/mm3 (0.0-0.1) 11/18/17 10:10 Seg Neutrophils % 74.3 % (40.0-70.0) H 11/18/17 10:10 Seg Neutrophils # 3.3 K/mm3 (1.8-7.7) 11/18/17 10:10 PT 12.9 Sec. (12.2-14.9) 11/19/17 13:22 INR 0.93 (0.87-1.13) 11/19/17 13:22 APTT 25.1 Sec. (24.2-36.6) 11/19/17 13:22 D-Dimer 840.79 ng/mlDDU (0-234) H 11/18/17 10:36 Heparin Anti-Xa Level 0.53 U.I./ml (0.3-0.7) 11/21/17 20:01 Sodium 141 mmol/L (137-145) 11/20/17 04:51 Potassium 3.8 mmol/L (3.6-5.0) 11/20/17 04:51 Chloride 107.8 mmol/L (98-107) H 11/20/17 04:51 Carbon Dioxide 25 mmol/L (22-30) 11/20/17 04:51 Anion Gap 12 mmol/L 11/20/17 04:51 BUN 18 mg/dL (9-20) 11/20/17 04:51 Creatinine 0.8 mg/dL (0.8-1.5) 11/20/17 04:51 Estimated GFR > 60 ml/min 11/20/17 04:51 BUN/Creatinine Ratio 23 % 11/20/17 04:51 Glucose 85 mg/dL (75-100) 11/20/17 04:51 Calcium 7.6 mg/dL (8.4-10.2) L 11/20/17 04:51 Troponin T < 0.010 ng/mL (0.00-0.029) 11/18/17 19:05 NT-Pro-B Natriuret Pep 5237 pg/mL (0-450) H 11/18/17 10:11 Triglycerides 119 mg/dL (2-149) 11/18/17 10:11 Cholesterol 150 mg/dL (50-199) 11/18/17 10:11 LDL Cholesterol Direct 73 mg/dL (50-130) 11/18/17 10:11 HDL Cholesterol 68 mg/dL (40-59) H 11/18/17 10:11 Cholesterol/HDL Ratio 2.20 % 11/18/17 10:11 TSH 1.120 mlU/mL (0.270-4.200) 11/18/17 19:05 Free T4 1.05 ng/dL (0.76-1.46) 11/18/17 19:05
[2017-11-22] MEDS: VITAMIN B-12 PO SCH (10:31)
[2017-11-22] MEDS: MORPHINE IV PRN ×3 (10:31→20:54)
[2017-11-22] MEDS: HCTZ PO SCH (10:32)
[2017-11-22] MEDS: PEPCID PO SCH (10:32)
[2017-11-22] MEDS: COZAAR PO SCH (10:32)
[2017-11-22] MEDS: SODIUM CHLORIDE FLUSH SYRINGE 10 ML IV SCH ×2 (10:32→23:25)
[2017-11-22 10:59] LABS: Hematocrit 33.2 % (35.5-45.6); Hemoglobin 10.9 gm/dl (11.8-15.2)
--- NOTE | 2017-11-22 11:04 | Progress Note ---
Assessment and Plan Chest Pain Acute pulmonary embolism CAD s/p CABG History of bioprosthetic AVR Normal function and normal LVEF by echo this admission History of GI bleeding Patient reports having BRBPR and hematemesis 4-5 days ago History of gastric ulcers History of Subdural hematoma Recurrent falls Recommendations: GI consultation is warranted Home on xarelto if ok with GI No further cardiac work-up is warranted Patient is scheduled for follow-up in our clinic on December 20 at 2:20 pm Subjective Date of service: 11/22/17 Principal diagnosis: Chest Pain Interval history: Patient complains of right sided pleuritic chest pain No events on tele Objective Vital Signs Temp Pulse Resp BP BP Pulse Ox 11/22/17 07:26 98.0 F 61 20 149/83 98 11/22/17 04:00 52 L 11/22/17 03:55 20 141/76 11/21/17 23:07 50 L 98 11/21/17 23:06 57 L 20 181/82 97 11/21/17 20:10 98.7 F 61 20 134/61 98 11/21/17 20:09 57 L 98 11/21/17 15:50 98.3 F 55 L 18 125/72 98 11/21/17 13:27 60 11/21/17 12:09 98.1 F 63 16 168/80 98 - Physical Examination General: No Apparent Distress HEENT: Positive: PERRL Neck: Positive: neck supple Cardiac: Positive: Reg Rate and Rhythm Lungs: Positive: Normal Exam Neuro: Positive: Grossly Intact Abdomen: Positive: Soft Skin: Positive: Clear Extremities: Absent: edema
--- NOTE | 2017-11-22 11:51 | Gastroenterology Consultation ---
History of Present Illness - Reason for Consult Consult date: 11/22/17 hematemesis Requesting physician: DINORA TYSON - History of Present Illness Patient is a 47 y/o male with PMH of HTN, aortic stenosis (s/p AVR) PE/DVT, and CAD (s/p CABG and stent placement) who presented to ED with c/o CP. He was found to have an acute PE upon admission and is now on a heparin gtt. Cardiology following. GI has been consulted for hematemesis. This morning patient was resting in bed w/o acute distress. He report an episode of hematemesis 3 days ago with associated dark stool but no active signs of bleeding since that time. No hematochezia. He report a hx of GI bleed due to an ulcer approximately 3-6 months ago while in [place]. Denies fever, SOB, dizziness, abd pain, N/V, dysphagia, odynophagia, diarrhea, or constipation. Stool noted to be light brown upon rectal exam. Past History Past Medical History: CAD, hypertension Past Surgical History: valve replacement, cholecystectomy, CABG, Other (Stent placement, Gastric Bypass) Social history: single. denies: smoking, alcohol abuse, prescription drug abuse Family history: hypertension Medications and Allergies Allergies Allergy/AdvReac Type Severity Reaction Status Date / Time lisinopril Allergy Shortness Verified 11/18/17 09:58 of Breath NSAIDS (Non-Steroidal Allergy Nausea Verified 11/18/17 09:58 Anti-Inflamma Home Medications Medication Instructions Recorded Confirmed Last Taken Type ALPRAZolam [Xanax TAB] 1 mg PO TID PRN 11/18/17 11/18/17 Unknown History AtorvaSTATin [Lipitor] 40 mg PO QHS 11/18/17 11/18/17 Unknown History Cyanocobalamin [Vitamin B-12] 1,000 mcg PO DAILY 11/18/17 11/18/17 Unknown History Losartan/Hydrochlorothiazide 1 each PO DAILY 11/18/17 11/18/17 Unknown History [Losartan-Hctz 50-12.5 mg Tab] Metoprolol [Lopressor TAB] 50 mg PO PRN 11/18/17 11/18/17 Unknown History Pantoprazole [Protonix] 40 mg PO QDAY 11/18/17 11/18/17 Unknown History Zolpidem Tartrate [Ambien CR] 12.5 mg PO QHS 11/18/17 11/18/17 Unknown History Active Meds: Active Medications Acetaminophen (Tylenol) 650 mg PO Q4H PRN PRN Reason: Pain MILD(1-3)/Fever >100.5/RICKETTS Last Admin: 11/18/17 14:10 Dose: 650 mg Alprazolam (Xanax) 1 mg PO TID PRN PRN Reason: Anxiety Last Admin: 11/22/17 10:32 Dose: 1 mg Atorvastatin Calcium (Lipitor) 40 mg PO QHS [facility] Last Admin: 11/21/17 21:59 Dose: 40 mg Cyanocobalamin (Vitamin B-12) 1,000 mcg PO DAILY [facility] Last Admin: 11/22/17 10:31 Dose: 1,000 mcg Hydrochlorothiazide (Hctz) 12.5 mg PO QDAY [facility] Last Admin: 11/22/17 10:32 Dose: 12.5 mg Heparin Sodium/Sodium Chloride (Heparin/ 0.45% Nacl-25,000 Unit/500 Ml) 25,000 unit in 500 mls @ 21 mls/hr IV TITR [facility]; Protocol Last Admin: 11/22/17 08:43 Dose: 1,450 units/hr, 29 mls/hr Losartan Potassium (Cozaar) 50 mg PO QDAY [facility] Last Admin: 11/22/17 10:32 Dose: 50 mg Metoprolol Tartrate (Lopressor) 50 mg PO PRN [facility] Last Admin: 11/18/17 18:37 Dose: 50 mg Morphine Sulfate (Morphine) 2 mg IV Q4H PRN PRN Reason: Pain, Moderate (4-6) Last Admin: 11/22/17 10:31 Dose: 2 mg Nitroglycerin (Nitrostat) 0.4 mg SL Q5M PRN PRN Reason: Chest Pain Last Admin: 11/18/17 13:06 Dose: 0.4 mg Ondansetron HCl (Zofran) 4 mg IV Q8H PRN PRN Reason: Nausea And Vomiting Last Admin: 11/22/17 08:40 Dose: 4 mg Oxycodone/Acetaminophen (Percocet 5/325) 1 tab PO Q4H PRN PRN Reason: Pain, Moderate (4-6) Last Admin: 11/22/17 08:41 Dose: 1 tab Pantoprazole Sodium (Protonix) 40 mg PO BID [facility] Sodium Chloride (Sodium Chloride Flush Syringe 10 Ml) 10 ml IV BID [facility] Last Admin: 11/22/17 10:32 Dose: 10 ml Sodium Chloride (Sodium Chloride Flush Syringe 10 Ml) 10 ml IV PRN PRN PRN Reason: LINE FLUSH Last Admin: 11/19/17 21:01 Dose: 10 ml Sodium Chloride (Sodium Chloride Flush Syringe 10 Ml) 10 ml IV PRN PRN PRN Reason: LINE FLUSH Zolpidem Tartrate (Ambien) 10 mg PO QHS PRN PRN Reason: Insomnia Last Admin: 11/22/17 00:12 Dose: 10 mg Review of Systems - Review of Systems Gastrointestinal: hematemesis Exam - Constitutional Vital Signs: Temp Pulse Resp BP Pulse Ox 98.0 F 61 20 149/83 98 11/22/17 07:26 11/22/17 07:26 11/22/17 07:26 11/22/17 07:26 11/22/17 07:26 General appearance: no acute distress - Respiratory Respiratory: bilateral: CTA (anterior) - Cardiovascular Rhythm: regular Heart Sounds: Present: S1 & S2 - Gastrointestinal General gastrointestinal: Present: soft, non-tender, non-distended, normal bowel sounds - Neurologic Neurological: alert and oriented x3 - Labs CBC & Chem 7: 11/22/17 10:29 11/20/17 04:51 Lab Results: Laboratory Results - last 24 hr 11/21/17 11/22/17 20:01 10:29 Hgb 10.9 L Hct 33.2 L Heparin Anti-Xa Level 0.53 Assessment and Plan 1.hematemesis 2.hx of PUD 3.hx of gastric bypass 4.acute PE (on heparin gtt) 5.CAD (s/p CABG) 6.aortic stenosis (s/p AVR) -HGB 10.9-stable -continue to monitor H/H and transfuse as needed -no active signs of bleeding x 3 days (stool light brown upon rectal exam) -currently HD stable -etiology- possible ulcer vs other GI pathology -will schedule for EGD in am -NPO after MN -INR in am -hold heparin gtt at 2AM -continue supportive care -will follow
[2017-11-22] MEDS ORDERED: PROTONIX IV SCH (12:00)
[2017-11-22] MEDS: PROTONIX PO SCH (22:25)
[2017-11-23] MEDS: PERCOCET 5/325 PO PRN ×4 (01:25→22:44)
[2017-11-23] MEDS: HEPARIN/ 0.45% NACL-25,000 UNIT/500 ML 25,000 UNIT/500 ML BAG IV SCH ×2 (01:28→17:25)
[2017-11-23] MEDS: XANAX PO PRN ×3 (02:16→22:44)
[2017-11-23] MEDS: MORPHINE IV PRN ×4 (02:20→19:42)
[2017-11-23 03:49] LABS: Hematocrit 29.1 % (35.5-45.6); Hemoglobin 9.6 gm/dl (11.8-15.2)
[2017-11-23 07:42] LABS: Basophils % (Auto) 0.5 % (0.0-1.8); Eosinophils % (Auto) 0.9 % (0.0-4.3); Hematocrit 32.8 % (35.5-45.6); Hemoglobin 10.9 gm/dl (11.8-15.2); Lymphocytes # (Auto) 1.2 K/mm3 (1.2-5.4); Lymphocytes % (Auto) 31.8 % (13.4-35.0); Mean Corpuscular HGB Conc 33 % (32-34); Mean Corpuscular Hemoglobin 31 pg (28-32); Mean Corpuscular Volume 92 fl (84-94); Monocytes # (Auto) 0.3 K/mm3 (0.0-0.8); Monocytes % (Auto) 8.5 % (0.0-7.3); Platelet Count 204 K/mm3 (140-440); Red Blood Count 3.58 M/mm3 (3.65-5.03)
[2017-11-23 07:52] LABS: INR 0.95 (0.87-1.13)
--- NOTE | 2017-11-23 08:16 | Progress Note ---
Assessment and Plan Acute pulmonary embolism CAD s/p CABG History of bioprosthetic AVR Normal function and normal LVEF by echo this admission History of GI bleeding Patient reports having BRBPR and hematemesis 4-5 days ago History of gastric ulcers History of Subdural hematoma Recurrent falls Recommendations: GI consulted and plan for EGD today. ASA and xarelto held Continue BB, ARB and statin Home on xarelto if ok with GI for treatment of PE No further cardiac work-up is warranted Patient is scheduled for follow-up in our clinic on December 20 at 2:20 pm Subjective Date of service: 11/23/17 Principal diagnosis: Chest Pain Interval history: No acute events. Resting comfortably. No chest pain or SOB. Objective Vital Signs Temp Pulse Resp BP Pulse Ox 11/23/17 05:31 98.5 F 57 L 20 142/87 98 11/23/17 04:00 52 L 11/22/17 22:25 97.9 F 59 L 18 172/80 98 11/22/17 22:00 18 11/22/17 19:31 98.2 F 64 20 130/78 99 11/22/17 16:00 67 11/22/17 15:09 98.4 F 67 20 132/82 98 11/22/17 11:39 98.5 F 65 20 137/90 98 - Physical Examination General: No Apparent Distress HEENT: Positive: PERRL Neck: Positive: neck supple Neuro: Positive: Grossly Intact Abdomen: Positive: Soft Skin: Positive: Clear Extremities: Absent: edema - Labs and Meds Coagulation 11/23/17 Range/Units 07:05 PT 13.2 (12.2-14.9) Sec. INR 0.95 (0.87-1.13) CBC 11/22/17 11/23/17 11/23/17 Range/Units 10:29 03:22 07:05 WBC 3.9 L (4.5-11.0) K/mm3 RBC 3.58 L (3.65-5.03) M/mm3 Hgb 10.9 L 9.6 L 10.9 L (11.8-15.2) gm/dl Hct 33.2 L 29.1 L 32.8 L (35.5-45.6) % Plt Count 195 204 (140-440) K/mm3 Lymph # 1.2 (1.2-5.4) K/mm3 [place] # 0.3 (0.0-0.8) K/mm3 Eos # 0.0 (0.0-0.4) K/mm3 Baso # 0.0 (0.0-0.1) K/mm3
[2017-11-23] MEDS ORDERED: WATER FOR IRRIG STERILE IR ONE (13:43)
[2017-11-23] MEDS ORDERED: NACL 0.9% 1000 ML 1,000 ML ONE (14:15)
--- NOTE | 2017-11-23 14:30 | Anesthesia Consultation ---
Anesthesia Consult and Med Hx Date of service: 11/23/17 - Airway Anesthetic Teeth Evaluation: Poor, Chipped ROM Head & Neck: Adequate Mental/Hyoid Distance: Adequate Mallampati Class: Class II Intubation Access Assessment: Good - Pulmonary Exam CTA: Yes - Cardiac Exam Cardiac Exam: RRR - Pre-Operative Health Status ASA Pre-Surgery Classification: ASA3 Proposed Anesthetic Plan: General - Pulmonary Hx Asthma: No Hx Respiratory Symptoms: Yes (PE (reason for admission)) COPD: No Hx Pneumonia: Yes (as a child) - Cardiovascular System Hx Hypertension: Yes Hx Heart Attack/AMI: Yes (Pt. denies MS) Hx Valvular Heart Disease: Yes (Mitral-replaced) - Endocrine Hx Renal Disease: Yes (ARF in 2007. Resolved.) Hx End Stage Renal Disease: No - Additional Comments Anesthesia Medical History Comments: NAC. Admits to hx as a noncompliant diabetic. S/p gastric bypass. Claims to no longer have DM since gastric bypass (no meds). Diabetic compications include 2 toe ampurations, and acute cellulitis. Claims that cardiac disease was discovered and surgically corrected with no MS. Multiple chipped teeth in back.
--- NOTE | 2017-11-23 14:35 | Anesthesia Day of Surgery ---
Anesthesia Day of Surgery - Day of Surgery Patient Examined: Yes Patient H&P Reviewed: Yes Patient is NPO: Yes Beta Blockers: Yes
[2017-11-23] MEDS ORDERED: VERSED ONE (14:42)
[2017-11-23] MEDS ORDERED: NACL 0.9% 1000 ML 1,000 ML IV SCH (15:00)
[2017-11-23] MEDS ORDERED: VERSED IV NR (15:00)
[2017-11-23] MEDS ORDERED: DIPRIVAN 10 MG/ML IV ONE (16:01)
--- NOTE | 2017-11-23 16:27 | Operative Report ---
Operative Report Operative Report: Date of procedure: 11/23/2017 Procedure: Esophagogastroduodenoscopy with removal of foreign bodies (francy) in 2 small gastric ulcers. Gastric bypass anatomy. Preprocedure diagnosis: History of gastric gastric ulcers now requiring anticoagulation for pulmonary emboli Post procedure diagnosis: Gastric bypass anatomy. Two 3 mm ulcers with embedded francy near the surgical junction. Endoscopist: Dr. Watt Anesthesia: Monitored anesthesia care per anesthesia department Medications: Propofol per anesthesia Estimated blood loss: 0 After careful discussion of the nature and purpose of the procedure as well as details the technique risks benefits and alternatives consent was obtained. The patient was placed in the left lateral decubitus position and medicated per anesthesia. The tip of the [employer] EQ 570 video scope was passed per orum under direct vision into the esophagus and advanced into the stomach. The patient had gastric bypass anatomy with a moderately large gastric pouch and widely patent gastrojejunostomy. The efferent and afferent limbs were widely patent. The scope was withdrawn back into the stomach. 2 small ulcers, 3 mm in size were present near the gastrojejunal anastomosis. There were no visible vessels present. Small francy were embedded in the ulcers and it was elected to remove the francy as they were felt to be the likely cause of local ulceration. The francy are removed successfully with the biopsy forceps. The scope was then withdrawn in the forward position. The stomach body with somewhat small in diameter on the fundus was also small but the mucosa normal overall. The esophagogastric junction was at 40 cm. The esophageal body was normal throughout. The procedure was was well tolerated and the patient was observed in recovery. Impressions: Gastric bypass anatomy. Small gastric ulcers associated with embedded francy. No stigmata of recent bleeding. [place] removed. Plan: Advance diet. The patient has reasonably good risk to continue anticoagulation therapy with Xarelto. Continue acid suppression for prophylaxis with PPI therapy. Electronically signed: Andres Watt MD
--- NOTE | 2017-11-23 16:35 | Post Anesthesia Evaluation ---
- Post Anesthesia Evaluation Patient Participated: Yes Airway Patent: Yes Stable Respiratory Function: Yes Nausea/Vomiting: No Temp > 96.8F: Yes Pain Manageable: Yes Adequeate Hydration: Yes Anesthesia Complications: No Block Receding Appropriately: Not Applicable Patient on Ventilator: No
--- NOTE | 2017-11-23 16:35 | Progress Note ---
Assessment and Plan Assessment and plan: Chest pain due to acute pulmonary embolism. Acute pulmonary embolism on left. Seen on CT angiogram of chest. I informed and discussed with him. He states he has history of PE and DVT and was taken off Xarelto few months ago because of history of GI bleed , anemia. he also had subdural hematoma last year. Continue heparin drip. Coronary artery disease s/p CABG Cardiology following. I discussed case with cardiology Hematemesis. consult GI. EGD done today revealed gastric ulcers gastric ulcers. Continue Protonix Hypertension Aortic stenosis s/p aortic valve replacement with bioprosthesis History of pulmonary embolism History of DVT History of peptic ulcer disease History of subdural hematoma History of gastric bypass and massive weight loss. Full code status. Discussed with Dr. Watt. He recommends can start xarelto tomorrow History Interval history: Chest pain, Mild shortness of breath, vomited blood 5 days ago at home EGD done today Hospitalist Physical - Physical exam Narrative exam: Gen : Not in acute distress, HEENT:Normocephalic, atraumatic Neck: supple, No JVD Lungs: Clear to auscultation, bilaterally, no rhonchi Heart :S1 and S2 reg, no murmurs, rubs or gallop Abd:soft, non tender, non distended, normal bowel sounds Ext: No edema, no clubbing, no cyanosis, Neuro: Awake,alert,oriented x 3, no focal signs Psych:normal mood - Constitutional Vitals: Temp Pulse Resp BP Pulse Ox 98.1 F 50 L 15 96/56 100 11/23/17 16:10 11/23/17 16:25 11/23/17 16:25 11/23/17 16:25 11/23/17 16:25 Results - Labs CBC & Chem 7: 11/23/17 07:05 11/20/17 04:51 Labs: Laboratory Last Values WBC 3.9 K/mm3 (4.5-11.0) L 11/23/17 07:05 RBC 3.58 M/mm3 (3.65-5.03) L 11/23/17 07:05 Hgb 10.9 gm/dl (11.8-15.2) L 11/23/17 07:05 Hct 32.8 % (35.5-45.6) L 11/23/17 07:05 MCV 92 fl (84-94) 11/23/17 07:05 MCH 31 pg (28-32) 11/23/17 07:05 MCHC 33 % (32-34) 11/23/17 07:05 RDW 16.0 % (13.2-15.2) H 11/23/17 07:05 Plt Count 204 K/mm3 (140-440) 11/23/17 07:05 Lymph % (Auto) 31.8 % (13.4-35.0) 11/23/17 07:05 [place] % (Auto) 8.5 % (0.0-7.3) H 11/23/17 07:05 Eos % (Auto) 0.9 % (0.0-4.3) 11/23/17 07:05 Baso % (Auto) 0.5 % (0.0-1.8) 11/23/17 07:05 Lymph # 1.2 K/mm3 (1.2-5.4) 11/23/17 07:05 [place] # 0.3 K/mm3 (0.0-0.8) 11/23/17 07:05 Eos # 0.0 K/mm3 (0.0-0.4) 11/23/17 07:05 Baso # 0.0 K/mm3 (0.0-0.1) 11/23/17 07:05 Seg Neutrophils % 58.3 % (40.0-70.0) 11/23/17 07:05 Seg Neutrophils # 2.2 K/mm3 (1.8-7.7) 11/23/17 07:05 PT 13.2 Sec. (12.2-14.9) 11/23/17 07:05 INR 0.95 (0.87-1.13) 11/23/17 07:05 APTT 25.1 Sec. (24.2-36.6) 11/19/17 13:22 D-Dimer 840.79 ng/mlDDU (0-234) H 11/18/17 10:36 Heparin Anti-Xa Level 0.67 U.I./ml (0.3-0.7) 11/22/17 20:07 Sodium 141 mmol/L (137-145) 11/20/17 04:51 Potassium 3.8 mmol/L (3.6-5.0) 11/20/17 04:51 Chloride 107.8 mmol/L (98-107) H 11/20/17 04:51 Carbon Dioxide 25 mmol/L (22-30) 11/20/17 04:51 Anion Gap 12 mmol/L 11/20/17 04:51 BUN 18 mg/dL (9-20) 11/20/17 04:51 Creatinine 0.8 mg/dL (0.8-1.5) 11/20/17 04:51 Estimated GFR > 60 ml/min 11/20/17 04:51 BUN/Creatinine Ratio 23 % 11/20/17 04:51 Glucose 85 mg/dL (75-100) 11/20/17 04:51 Calcium 7.6 mg/dL (8.4-10.2) L 11/20/17 04:51 Troponin T < 0.010 ng/mL (0.00-0.029) 11/18/17 19:05 NT-Pro-B Natriuret Pep 5237 pg/mL (0-450) H 11/18/17 10:11 Triglycerides 119 mg/dL (2-149) 11/18/17 10:11 Cholesterol 150 mg/dL (50-199) 11/18/17 10:11 LDL Cholesterol Direct 73 mg/dL (50-130) 11/18/17 10:11 HDL Cholesterol 68 mg/dL (40-59) H 11/18/17 10:11 Cholesterol/HDL Ratio 2.20 % 11/18/17 10:11 TSH 1.120 mlU/mL (0.270-4.200) 11/18/17 19:05 Free T4 1.05 ng/dL (0.76-1.46) 11/18/17 19:05
[2017-11-23] MEDS: COZAAR PO SCH (17:19)
[2017-11-23] MEDS: HCTZ PO SCH (17:19)
[2017-11-23] MEDS: PROTONIX PO SCH ×2 (17:19→22:44)
[2017-11-23] MEDS: VITAMIN B-12 PO SCH (17:19)
[2017-11-23] MEDS: SODIUM CHLORIDE FLUSH SYRINGE 10 ML IV SCH ×2 (17:20→22:47)
[2017-11-23] MEDS: ZOFRAN IV PRN (19:43)
[2017-11-24] MEDS: AMBIEN PO PRN (00:03)
[2017-11-24] MEDS: XANAX PO PRN (04:35)
[2017-11-24] MEDS: PERCOCET 5/325 PO PRN ×2 (04:35→10:00)
[2017-11-24] MEDS: MORPHINE IV PRN (07:03)
[2017-11-24 07:53] LABS: Hemoglobin 10.7 gm/dl (11.8-15.2)
--- NOTE | 2017-11-24 08:24 | Discharge Summary ---
Providers - Providers Date of Admission: 11/18/17 12:37 Date of discharge: 11/24/17 Attending physician: DINORA TYSON 11/18/17 Consult to Cardiac Rehabilitation [CONS] Routine Reason For Exam: Phase I 11/18/17 11:55 Consult to Physician [CONS] Stat Comment: Consulting Provider: IVANNA LEVIN Physician Instructions: Reason For Exam: acs 11/22/17 10:18 Consult to Physician [CONS] Routine Comment: Consulting Provider: DIPAK PINA Physician Instructions: Reason For Exam: hematemesis Primary care physician: KNOT BORER Hospitalization Condition: Fair Disposition: DC-01 TO HOME OR SELFCARE Core Measure Documentation - Palliative Care Palliative Care/ Comfort Measures: Not Applicable - Core Measures Any of the following diagnoses?: DVT/PE - VTE Discharge Requirements Deep Vein Thrombosis/Pulmonary Embolism Present on Admission: Yes Has pt received <5 days of overlap therapy or INR<2.0: No Anticoagulant overlap therapy prescribed at discharge: No Contraindication No Overlap Therapy order at DC: Not Indicated (Going home on Xarelto) Exam - Constitutional Vitals: Temp Pulse Resp BP Pulse Ox 98.0 F 58 L 20 116/77 98 11/24/17 05:20 11/24/17 05:20 11/24/17 05:20 11/24/17 05:20 11/24/17 05:20 Plan Activity: advance as tolerated Diet: low fat, low cholesterol, low salt Additional Instructions: 1.Follow up with PCP in 1 week. 2.Follow up with Dr. Baird on 12/20/17 Follow up with: PRIMARY CARE, [Primary Care Provider] - 7 Days Prescriptions: HYDROcodone/APAP 5-325 [Lyme 5/325] 1 each PO Q6HR PRN #10 tablet PRN Reason: Pain Losartan/Hydrochlorothiazide [Losartan-Hctz 50-12.5 mg Tab] 1 each PO DAILY #30 tablet Pantoprazole [Protonix TAB] 40 mg PO QDAY #30 tablet Rivaroxaban [Xarelto] 15 mg PO BIDDIAB 20 Days tablet Rivaroxaban [Xarelto] 20 mg PO QDAY #30 tab
--- NOTE | 2017-11-24 09:42 | Progress Note ---
Assessment and Plan Acute pulmonary embolism CAD s/p CABG History of bioprosthetic AVR Normal function and normal LVEF by echo this admission History of GI bleeding Patient reports having BRBPR and hematemesis 4-5 days ago History of gastric ulcers History of Subdural hematoma Recurrent falls Recommendations: GI consulted, completed EGD yesterday. Okay to restart xarelto per GI Continue BB, ARB and statin No further cardiac work-up is warranted Patient is scheduled for follow-up in our clinic on December 20 at 2:20 pm Subjective Date of service: 11/24/17 Principal diagnosis: Chest Pain Interval history: No acute events. Resting comfortably. No chest pain or SOB. Objective Vital Signs Temp Pulse Resp BP Pulse Ox 11/24/17 07:50 97.7 F 57 L 14 126/73 97 11/24/17 05:20 98.0 F 58 L 20 116/77 98 11/24/17 04:00 70 11/23/17 22:50 97.9 F 67 20 131/92 97 11/23/17 22:00 18 11/23/17 19:24 98.4 F 91 H 20 132/85 98 11/23/17 17:17 97.9 F 63 18 167/110 99 11/23/17 16:40 57 L 18 144/80 99 11/23/17 16:25 50 L 15 96/56 100 11/23/17 16:10 98.1 F 51 L 14 141/66 100 11/23/17 14:58 98.1 F 63 11 L 178/95 99 11/23/17 12:02 98.2 F 18 138/85 11/23/17 11:05 57 L - Physical Examination General: No Apparent Distress HEENT: Positive: PERRL Neck: Positive: neck supple Neuro: Positive: Grossly Intact Abdomen: Positive: Soft Skin: Positive: Clear Extremities: Absent: edema - Labs and Meds CBC 11/24/17 Range/Units 06:45 Hgb 10.7 L (11.8-15.2) gm/dl Hct 32.0 L (35.5-45.6) %
[2017-11-24] MEDS: PROTONIX PO SCH (10:00)
[2017-11-24] MEDS: COZAAR PO SCH (10:00)
[2017-11-24] MEDS: VITAMIN B-12 PO SCH (10:00)
[2017-11-24] MEDS: HCTZ PO SCH (10:00)
[2017-11-24] MEDS: ZOFRAN IV PRN (10:01)
[2017-11-24] MEDS: SODIUM CHLORIDE FLUSH SYRINGE 10 ML IV SCH (10:01)
[2017-11-24 13:15] VITALS: BP 154/91
[2017-11-24] MEDS ORDERED: XARELTO PO SCH (18:00)
== END 2017-11-24 14:16 | disposition home or self-care (01) | DRG 393 ==
LOC: ED 09:40 → 4A 12:37
PROVIDERS: ADMIT Internal Medicine; ATTEND Internal Medicine
PROC: 0DC68ZZ Extirpation of Matter from Stomach, Via Natural or Artificial Opening Endoscopic (ICD-10-PCS; principal; 2017-11-23)
DX: K91.89 Other postprocedural complications and disorders of digestive system (principal); I26.99 Other pulmonary embolism without acute cor pulmonale; K95.89 Other complications of other bariatric procedure; Y83.2 Surgical operation with anastomosis, bypass or graft as the cause of abnormal reaction of the patient, or of later complication, without mention of misadventure at the time of the procedure; K25.9 Gastric ulcer, unspecified as acute or chronic, without hemorrhage or perforation; W18.39XA Other fall on same level, initial encounter; Z95.1 Presence of aortocoronary bypass graft; Z98.84 Bariatric surgery status; Z95.5 Presence of coronary angioplasty implant and graft; Z90.49 Acquired absence of other specified parts of digestive tract; Z82.49 Family history of ischemic heart disease and other diseases of the circulatory system; Z79.899 Other long term (current) drug therapy; Z79.01 Long term (current) use of anticoagulants; Z88.6 Allergy status to analgesic agent; Z88.8 Allergy status to other drugs, medicaments and biological substances; Z95.2 Presence of prosthetic heart valve; Y93.89 Activity, other specified; Y92.098 Other place in other non-institutional residence as the place of occurrence of the external cause; Y99.8 Other external cause status; Z89.429 Acquired absence of other toe(s), unspecified side; K28.9 Gastrojejunal ulcer, unspecified as acute or chronic, without hemorrhage or perforation
CPT/HCPCS: 36415; 71275; 80048; 80061; 83880; 84439; 84443; 84484; 85014; 85018; 85025; 85027; 85049; 85379; 85520; 85610; 85730; 87116; 93005; 93010; 93306; A9270-GY; J1644; J2250; J2270; J2405; J2704; J7030; Q9967